=== PATIENT | male | born 1955 | race Caucasian/White ===

== ENCOUNTER 2016-07-20 09:03 | Emergency (ER) | payer OTHER ==
[~2016-07-20] VITALS: Ht 165.1 cm; Wt 82.0 kg
[~2016-07-20 09:03] MED LIST: AMLODIPINE BESY10 MG PO; ASPIR-LOW81 MG PO; BACTRIM,SEPT1 TABLET PO; CYCLOBENZAPRINE10 MG PO; DIABETA5 MG PO; FLOMAX0.4 MG PO; GLUCOPHAGE1000 MG PO; GLUCOPHAGE500 MG PO; LISINOPRIL40 MG PO; METFORMIN HCL500 MG PO; MOTRIN IB200 MG PO; MOTRIN800 MG PO; NOHOMEMEDS; PERCOCET 5/31 TABLET PO; SIMVASTATIN20 MG PO; ZOFRAN ODT4 MG PO
[2016-07-20 09:11] VITALS: BP 171/97
[2016-07-20] MEDS ORDERED: FLEXERIL5 MG PO (09:56)
== END 2016-07-20 10:15 | disposition home or self-care (01) ==
LOC: EME 09:03
DX: M54.5 Low back pain (principal); G89.29 Other chronic pain; Z98.890 Other specified postprocedural states; I10 Essential (primary) hypertension; E11.9 Type 2 diabetes mellitus without complications; Z79.891 Long term (current) use of opiate analgesic
CPT/HCPCS: 99281; 99283

== ENCOUNTER 2016-12-08 11:20 | Emergency (ER) | payer OTHER ==
[~2016-12-08] VITALS: Ht 162.6 cm; Wt 82.1 kg
[~2016-12-08 11:20] MED LIST changes: +FLEXERIL5 MG PO
[2016-12-08] MEDS ORDERED: NAPROSYN500 MG PO (15:42)
[2016-12-08] MEDS ORDERED: LIDODERM 5% P1 PATCH TD (15:42)
[2016-12-08] MEDS ORDERED: BACLOFEN10 MG PO (15:42)
[2016-12-08 15:52] VITALS: BP 150/94
== END 2016-12-08 15:52 | disposition home or self-care (01) ==
LOC: EME 11:20
DX: G89.29 Other chronic pain (principal); M54.5 Low back pain; S33.5XXA Sprain of ligaments of lumbar spine, initial encounter; W01.10XA Fall on same level from slipping, tripping and stumbling with subsequent striking against unspecified object, initial encounter; Y92.018 Other place in single-family (private) house as the place of occurrence of the external cause; Y93.01 Activity, walking, marching and hiking; E11.9 Type 2 diabetes mellitus without complications; Z79.84 Long term (current) use of oral hypoglycemic drugs; I10 Essential (primary) hypertension; Z86.73 Personal history of transient ischemic attack (TIA), and cerebral infarction without residual deficits; Z88.6 Allergy status to analgesic agent; Z88.5 Allergy status to narcotic agent; Z91.041 Radiographic dye allergy status
CPT/HCPCS: 72100; 72220; 99281; 99284; J1885